=== PATIENT | male | born 1965 | race Caucasian/White ===

== ENCOUNTER → 2016-03-21 | Day surgery (SDC) | payer BC ==
--- NOTE | 2016-03-17 16:52 | HP ---
PREOPERATIVE HISTORY AND PHYSICAL EXAM: DATE OF ADMISSION/SURGERY: 03/21/16 and 04/11/16 [facility] DATE OF OFFICE VISIT/ENCOUNTER: 03/17/16 ATTENDING SURGEON: Emmy Billy MD PROCEDURE: Right wrist carpal tunnel release on 03/21/16, left wrist carpal tunnel release on 04/11/16. CHIEF COMPLAINT: Bilateral wrist/hand numbness and tingling. HISTORY OF PRESENT ILLNESS: This is a 50-year-old male who has had ongoing complaints of numbness and tingling in his bilateral hands for quite some time now. He had a carpal tunnel release several years ago on the left, but had a recurrence of symptoms, and nerve conduction study that was performed last year showed persistent or recurrent carpal tunnel syndrome on the left and carpal tunnel syndrome on the right. The patient has received more conservative treatment including cortisone injections into both carpal tunnels and has tried bracing in the past; however, symptoms persist. The patient is interested in proceeding with more definitive treatment at this time and we will proceed first with a right wrist carpal tunnel release followed by a left wrist carpal tunnel release. PAST MEDICAL HISTORY: 1. Hypertension. 2. Hypercholesterolemia. 3. Asthma. PAST SURGICAL HISTORY: 1. Bilateral knee arthroscopies. 2. Left hand surgery. 3. Left carpal tunnel release. CURRENT MEDICATIONS: 1. Claritin 10 mg daily. 2. Flovent Diskus 100 mcg 2 puffs b.i.d. 3. Fluticasone propionate 50 mcg 2 sprays each nostril p.r.n. 4. Lisinopril 5 mg daily. 5. ProAir HFA 2 puffs q.4 hours p.r.n. 6. Simvastatin 40 mg daily. ALLERGIES: No known drug allergies. FAMILY MEDICAL HISTORY: Significant for heart disease. 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 He denies tobacco and illicit drug use. He does admit to quite regular daily alcohol use , reports generally 3 vodka drinks during the day and wine at night. REVIEW OF SYSTEMS: General: Negative for fevers, chills, or night sweats. No known anesthesia problems. HEENT: Negative for headache, lightheadedness, or syncopal episodes. Integumentary: Negative for abrasions, lesions, or open wounds. Cardiothoracic: Positive for hypertension. Negative for chest pain or palpitations. Pulmonary: Positive for asthma. Positive for shortness of breath with exertion related to asthma. Negative for chronic cough or COPD. GI : Negative for nausea, vomiting, diarrhea, constipation, or GERD. : Negative for nocturia, urinary frequency, urgency, history of UTIs, or kidney problems. Musculoskeletal: Positive for current complaint. Neurological: Negative for history of seizure, stroke, or epilepsy. Endocrine: Negative for diabetes or thyroid issues. Hematologic: Negative for easy bruising, anemia, excessive bleeding, or history of DVT. Infectious Disease: Negative for history of MRSA, hepatitis C, or HIV. PHYSICAL EXAMINATION GENERAL: A well-developed, well-nourished, 50-year-old male, in no acute distress. VITAL SIGNS: Height 5 feet 8 inches, weight 249 pounds, blood pressure 124/76, pulse rate 60. HEENT: Normocephalic, atraumatic. Pupils are equal, round, and reactive to light and accommodation. Extraocular movements are intact. NECK: Supple. No palpable lymph nodes. Throat is clear. PULMONARY: Lungs are clear to auscultation bilaterally. No wheezes, rales, or rhonchi. CARDIOTHORACIC: Regular rate and rhythm. S1, S2. Mild murmur detected. ABDOMEN: Positive bowel sounds, soft, nontender. NEUROLOGICAL: Alert and oriented x3. Cranial nerves II through XII are intact. Sensation is intact to light touch. MUSCULOSKELETAL: On exam of bilateral wrists/hands, there is no thenar wasting. He has a negative Tinel's sign at the median nerves, bilateral wrists. He has good strength with thumb abduction. He has full range of motion in the fingers and could make a fist. He has mildly positive Phalen's test bilaterally. Sensation is intact to light touch throughout both hands. 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 IMPRESSION: Bilateral carpal tunnel syndrome. PLAN: The patient is scheduled to undergo a right wrist carpal tunnel release with Dr. Billy on 03/21/16 and a left wrist carpal tunnel release on 04/11/16. He will return to the office 10 to 14 days postop for followup and suture removal. A prescription for Ultracet was e-scribed to the patient's pharmacy for postoperative pain management. CARINE WHALEY [id number]/[facility] #: [id number] PABLO
[~2016-03-21] MED LIST: Buffered Lidocaine 1% SYR 3ML* 3 ML/SYR SYRINGE INTRADERM ONE; Buffered Lidocaine 1% SYR 3ML* 3 ML/SYR SYRINGE ONE; Lidocaine 1% INJ* 10 MG/ML 30 ML SDV ONE; Propofol* 10 MG/ML 20 ML BTL IV PUSH ONE; ceFAZolin 2 GM PREMIX (*) 2 GM/50 ML BAG IVPB ONE
[2016-03-21 12:26] VITALS: BP 113/70
--- NOTE | 2016-03-21 20:51 | OP ---
DATE OF OPERATION: 03/21/16 LOCATED WITHIN [facility] DATE OF : 61 SURGEON: Emmy Billy MD. INSIDE BARREL POLISHER: CARINE Jorgensen. ANESTHESIOLOGIST: Troy Olivier MD ANESTHESIA: Local MAC. PRE-OP DIAGNOSIS: Right carpal tunnel syndrome which is recurrent. POST-OP DIAGNOSIS: Right carpal tunnel syndrome which is recurrent. OPERATIVE PROCEDURE: Right carpal tunnel release. INDICATIONS FOR PROCEDURE: Salvador is a 50-year-old man who has a history of carpal tunnel release in the past. He did well with that but recently started having symptoms again. New nerve conduction studies shows carpal tunnel syndrome. He presents for carpal tunnel release. ESTIMATED BLOOD LOSS: Zero. TOURNIQUET TIME: About 8 minutes. DESCRIPTION OF PROCEDURE: The patient was brought to the operating room and was given a sedation anesthetic and a local infiltration of 10 cc of 1% plain lidocaine. The skin of his right hand and forearm was prepped and draped in the usual sterile fashion. The hand and forearm were exsanguinated and the tourniquet elevated to 250 mmHg. A longitudinal incision was made in the previous scar and then extended proximally across the wrist flexion crease with zigzag incisions, dissected sharply through the subcutaneous tissue and scar tissue and the transverse carpal ligament was incised completely releasing the nerve for a few centimeters proximal to the wrist and into the center of the palm of the hand. There was some scarring around the transverse carpal ligament and then some compression evident proximal to that. The nerve was completely released from the surrounding tissue. The wound was irrigated and the skin edges reapproximated with 4-0 nylon suture. The wound was dressed with Xeroform , 4x4, Webril, and an Devin wrap. The patient tolerated the procedure well and was brought to the recovery room in good condition. [id number]/[facility] #: [id number] MTDD
== END | disposition home or self-care (01) ==
LOC: OREAST 08:59
PROVIDERS: ATTEND Orthopaedic Surgery
DX: G56.01 Carpal tunnel syndrome, right upper limb (principal); I10 Essential (primary) hypertension; J45.909 Unspecified asthma, uncomplicated; E78.00 Pure hypercholesterolemia, unspecified
CPT/HCPCS: J0690; J2704

== ENCOUNTER → 2016-04-11 | Day surgery (SDC) | payer BC ==
[~2016-04-11] MED LIST changes: +DiMENhydriNATE IV* 50 MG/ML VIAL IV PUSH PRN; +Famotidine IV* 10 MG/ML 2 ML (20 mg) IV ONE; +Famotidine IV* 10 MG/ML 2 ML (20 mg) ONE; +Ketorolac INJ* 30 MG/ML 1 ML VIAL ONE; +Lidocaine 2% PF * 5 ML VIAL ONE; +Midazolam* 1 MG/ML 5 ML VIAL (5 MG) ONE; +Ondansetron INJ* 2 MG/ML VIAL ONE; +fentaNYL* 50 MCG/ML 2 ML VIAL (100 MCG VIAL) ONE; +oxyCODONE/Acetamin 5/325 MG* TAB PO PRN
[2016-04-11 09:18] VITALS: BP 102/68
--- NOTE | 2016-04-11 22:32 | OP ---
DATE OF OPERATION: 04/11/16 [facility] DATE OF : 61 SURGEON: Emmy Billy MD NIGHT WAREHOUSE MANAGER: CARINE Jorgensen ANESTHESIOLOGIST: Clau Crum MD ANESTHESIA: Local MAC. PRE-OP DIAGNOSIS: Left carpal tunnel syndrome. POST-OP DIAGNOSIS: Left carpal tunnel syndrome. OPERATIVE PROCEDURE: Left carpal tunnel release. ESTIMATED BLOOD LOSS: Zero. TOURNIQUET TIME: About 8 minutes. INDICATION FOR PROCEDURE: Salvador is a 50-year-old male who has a history of carpal tunnel syndrome and a carpal tunnel release on the left, he did very well for several years and has recurrent symptoms recently. He presents for a redo carpal tunnel release on the left. DESCRIPTION OF PROCEDURE: The patient was brought to the operating room, was given a sedation anesthetic, and a local infiltration of 1% plain lidocaine in the palm of his left hand. The skin of his left hand and forearm was prepped and draped in the usual sterile fashion. The hand and forearm were exsanguinated and the tourniquet elevated to 250 mmHg. A longitudinal incision with a Jazzy incision across the wrist creases was made in the previous scar and extended proximally. We dissected sharply down to the transverse carpal ligament, which was incised completely releasing the median nerve proximally and distally. There was some scar tissue surrounding the nerve and this was carefully debrided. The nerve, however, appeared to be in good condition. The wound was irrigated and skin edges were reapproximated with 4-0 nylon suture. The wound was dressed with Xeroform, 4x4, Webril, and an Devin wrap. The patient tolerated the procedure well and was brought to the recovery room in good condition. [id number]/[facility] #: [id number] [facility]
== END | disposition home or self-care (01) ==
LOC: OREAST 07:21
PROVIDERS: ATTEND Orthopaedic Surgery
DX: G56.01 Carpal tunnel syndrome, right upper limb (principal); I10 Essential (primary) hypertension
CPT/HCPCS: J0690; J1885; J2250; J2405; J2704; J3010

== ENCOUNTER 2017-10-21 18:02 | Emergency (ER) | payer BC ==
[2017-10-21 18:44] VITALS: BP 137/83
--- NOTE | 2017-10-21 20:48 | RAD ---
EXAM: CT Abdomen and Pelvis Without Intravenous Contrast CLINICAL HISTORY: 51 years old, male; Pain and signs and symptoms; Nausea; Abdominal pain; Patient HX: Hematuria, bilat flank pain, mid to lower abdominal pain; Additional info: Abdominal pain, kidney stone protocal TECHNIQUE: Axial computed tomography images of the abdomen and pelvis without intravenous contrast. Coronal and sagittal reformatted images were created and reviewed. COMPARISON: No relevant prior studies available. FINDINGS: Lung bases: There is minimal bibasilar atelectatic change or scarring. ABDOMEN: Liver: There is mild hepatomegaly. There are multiple cystic lesions in the liver, the largest measuring 2.4 cm, likely simple cysts. Gallbladder and bile ducts: Unremarkable. No calcified stones. No ductal dilation. Pancreas: There is mild peripancreatic fat stranding in the vicinity of the uncinate process and head of the pancreas, cannot exclude mild focal acute pancreatitis. No ductal dilation. Spleen: There is a calcified splenic granuloma. Adrenals: Unremarkable. No mass. Kidneys and ureters: There is a simple cyst of the right kidney measuring a maximum of 4.5 cm. No obstructing stones. No hydronephrosis. There is a small 3 mm nonobstructing left renal calculus. Stomach and bowel: There is colonic diverticulosis without evidence for acute diverticulitis. No obstruction. PELVIS: Appendix: The appendix is unremarkable and seen best on axial image 123. Bladder: Unremarkable. No stones. Reproductive: Unremarkable as visualized. ABDOMEN and PELVIS: Intraperitoneal space: Fat stranding in the upper abdomen and near the root of the mesentery is also adjacent to the fourth portion of the duodenum, cannot exclude mild duodenitis. No free air. No significant fluid collection. There are small bilateral fat-containing inguinal hernias. Bones/joints: There are degenerative changes of the spine. No acute fracture. No dislocation. Soft tissues: Unremarkable. Vasculature: Unremarkable. No abdominal aortic aneurysm. Lymph nodes: Unremarkable. No enlarged lymph nodes. IMPRESSION: 1. There is mild peripancreatic fat stranding in the vicinity of the uncinate process and head of the pancreas, cannot exclude mild focal acute pancreatitis. 2. Fat stranding in the upper abdomen and near the root of the mesentery is also adjacent to the fourth portion of the duodenum, cannot exclude mild duodenitis. 3. There is colonic diverticulosis without evidence for acute diverticulitis. 4. Small nonobstructing left renal calculus.
--- NOTE | 2017-10-21 20:48 | UC ---
Abdominal Pain Male HPI - HPI Summary HPI Summary: pt c/o generalized abdominal pain that began last night, pt reports that he " was up all night" due to abdominal and low back pain. denies injury, hx of kidney stones, hx of GI disorder, had colonoscopy at age 48 and had 2 polyps removed. reports that he has occasional nausea, no vomiting, no diarrhea, states that he has been passing flatus, had small bowel movement yesterday and today, does not feel as though he has emptied his bowels. Pt denies urinary symptoms of frequency, urgency, dysuria or hematuria. Pt states he is fatigued , and has low back and pelvic pressure that is uncomfortable and that he took 2 laxatives today at 2 pm with no improvement in discomfort and no BM. - History of Current Complaint Chief Complaint: UCGI Stated Complaint: STOMACH ACHE (SINCE YESTERDAY) Time Seen by Provider: 10/21/17 19:17 Hx Obtained From: Patient Onset/Duration: Sudden Onset, Lasting Days, Still Present, Worse Since - onset Timing: Constant Severity Initially: Mild Severity Currently: Moderate Pain Intensity: 5 Location: Diffuse, Suprapubic Radiates: Yes Radiates to: Back Character: Colicy, Cramping, Dull Aggravating Factor(s): Movement Alleviating Factor(s): Nothing Associated Signs And Symptoms: Positive: Back Pain, Constipation, Nausea - Risk Factors Testicular Torsion: Negative Cardiac Risk Factors: Hypertension - Allergies/Home Medications Allergies/Adverse Reactions: Allergies Allergy/AdvReac Type Severity Reaction Status Date / Time No Known Allergies Allergy Verified 10/21/17 18:39 PMH/Surg Hx/FS Hx/Imm Hx Previously Healthy: Yes Cardiovascular History: Hypertension - Surgical History Surgical History: Yes Surgery Procedure, Year, and Place: ARTHROSCOPY LEFT AND RIGHT KNEE. REPAIR OF NERVE DAMAGE LEFT HAND- 20 YEARS AGO+. REPAIR OF INJURY LEFT PINKY FINGER. Carpal tunnel x2 - Family History Known Family History: Positive: Cardiac Disease - Social History Occupation: Employed Full-time Lives: With Family Alcohol Use: Weekly Alcohol Amount: 10 DRINKS PER WEEK Substance Use Type: None Smoking Status (MU): Never Smoked Tobacco Amount Used/How Often: OCCASIONAL CIGAR Have You Smoked in the Last Year: Yes Review of Systems Constitutional: Chills, Fatigue Skin: Negative Eyes: Negative ENT: Negative Respiratory: Negative Cardiovascular: Negative Gastrointestinal: Abdominal Pain, Nausea, Other - constipation Genitourinary: Negative Motor: Negative Neurovascular: Negative Musculoskeletal: Negative Neurological: Negative Psychological: Negative Is Patient Immunocompromised?: No All Other Systems Reviewed And Are Negative: Yes Physical Exam Triage Information Reviewed: Yes Appearance: Ill-Appearing, Pain Distress, Obese Vital Signs: Initial Vital Signs Temp 98.3 F 10/21/17 18:36 Pulse 89 10/21/17 18:36 Resp 16 10/21/17 18:36 BP 137/83 10/21/17 18:36 Pulse Ox 98 10/21/17 18:36 Vital Signs Reviewed: Yes Eye Exam: Normal ENT Exam: Normal Dental Exam: Normal Neck exam: Normal Respiratory: Positive: No respiratory distress Cardiovascular Exam: Normal Abdomen Description: Positive: Other: - suprapubic tenderness Bowel Sounds: Positive: Present Musculoskeletal Exam: Normal Neurological Exam: Normal Psychological Exam: Normal Skin Exam: Normal Diagnostics - Radiology No standard instances Radiology Interpretation Completed By: Radiologist - IMPRESSION: 1. There is mild peripancreatic fat stranding in the vicinity of the uncinate process and head of the pancreas, cannot exclude mild focal acute pancreatitis. 2. Fat stranding in the upper abdomen and near the root of the mesentery is also adjacent to the fourth portion of the duodenum, cannot exclude mild duodenitis. 3. There is colonic diverticulosis without evidence for acute diverticulitis. 4. No visible renal, ureteral or bladder calculi. Abd Pain Male Course/Dx - Course Course Of Treatment: I discussed the CT report and recommend that the pt go directly to the closest ER. Pt verbalized understanding and agreed to plan of care. - Differential Dx/Clinical Impression Differential Diagnosis/HQI/PQRI: Constipation, Pancreatitis Provider Diagnoses: pancreatitis. constipation - Physician Notification/Consults Discussed Patient Care With: marianela bacon - accepted Time Discussed With Above Provider: 21:02 Instructed by Provider To: Other - recommended to closest ER Discharge - Sign-Out/Discharge Documenting (check all that apply): Patient Departure - Discharge Plan Condition: Stable Disposition: HOME-RECOMMEND TO ED Patient Education Materials: Pancreatitis (ED), Constipation (ED) Referrals: Epi Combs MD [Primary Care Provider] - As Soon As Possible Additional Instructions: It is recommended that you go directly to the closest emergency room for further evaluation and testing. Per institutional requirements, I have reviewed the chart, however, I was not consulted specifically or made aware of this patient by the above midlevel provider. I did not personally evaluate, interact with , or disposition this patient. - Billing Disposition and Condition Condition: STABLE Disposition: Home-Recommend to ED
== END 2017-10-21 21:14 | disposition home health service (06) ==
LOC: UCCORT 18:02
DX: K85.90 Acute pancreatitis without necrosis or infection, unspecified (principal); K59.00 Constipation, unspecified; I10 Essential (primary) hypertension; F17.290 Nicotine dependence, other tobacco product, uncomplicated
CPT/HCPCS: 74176; 81003; 99212; G0463

== ENCOUNTER → 2019-02-09 05:54 | Day surgery (SDC) | payer BC ==
[~2019-02-09 05:54] MED LIST changes: -Buffered Lidocaine 1% SYR 3ML* 3 ML/SYR SYRINGE INTRADERM ONE; -Buffered Lidocaine 1% SYR 3ML* 3 ML/SYR SYRINGE ONE; +Buffered Lidocaine 1% SYRIN* 1 ML/SYRINGE INTRADERM ONE; -DiMENhydriNATE IV* 50 MG/ML VIAL IV PUSH PRN; -Famotidine IV* 10 MG/ML 2 ML (20 mg) IV ONE; -Famotidine IV* 10 MG/ML 2 ML (20 mg) ONE; -Ketorolac INJ* 30 MG/ML 1 ML VIAL ONE; +Lactated Ringers 1000 ML Bag* 1,000 ML IV SCH; -Lidocaine 1% INJ* 10 MG/ML 30 ML SDV ONE; -Lidocaine 2% PF * 5 ML VIAL ONE; -Midazolam* 1 MG/ML 5 ML VIAL (5 MG) ONE; -Ondansetron INJ* 2 MG/ML VIAL ONE; -Propofol* 10 MG/ML 20 ML BTL IV PUSH ONE; +Tranexamic Acid 1,000 MG in NS 0.9% 50 ML IV ONE; -ceFAZolin 2 GM PREMIX (*) 2 GM/50 ML BAG IVPB ONE; +ceFAZolin 2 GM PREMIX in ORs 2 GM/50 ML BAG ONE; -fentaNYL* 50 MCG/ML 2 ML VIAL (100 MCG VIAL) ONE; -oxyCODONE/Acetamin 5/325 MG* TAB PO PRN
[2019-02-09 06:42] VITALS: BP 124/88
== END | disposition home or self-care (01) ==
LOC: OR 05:54
PROVIDERS: ATTEND Orthopaedic Surgery
DX: M17.12 Unilateral primary osteoarthritis, left knee (principal); Z53.9 Procedure and treatment not carried out, unspecified reason
CPT/HCPCS: J0690

== ENCOUNTER 2019-02-14 08:38 | Inpatient (IN) | payer BC ==
[~2019-02-14 08:38] MED LIST changes: -Tranexamic Acid 1,000 MG in NS 0.9% 50 ML IV ONE; +Tranexamic Acid 1,000 MG in NS 0.9% 50 ML* (outpatient use) IV SCH; -ceFAZolin 2 GM PREMIX in ORs 2 GM/50 ML BAG ONE
[2019-02-14] MEDS ORDERED: ceFAZolin 2 GM PREMIX in ORs 2 GM/50 ML BAG ONE (09:10)
--- OUTSIDE RECORDS SUMMARY | 2019-02-14 09:19 | XMS REPORT | Continuity of Care Document ---
:1965 External Reference #:[id number] Author Name Epi Combs MD (transmitted by agent of provider Sandy Valles) Address [address] [place] [address] Care Team Providers Name Role Phone Epi Combs MD - Family Care Team Information Pharmacy Order Entry Technician [phone] Medicine Problems Active Problems Provider Date Localized, primary osteoarthritis Rito Valentin MD Onset: 02/25/2018 Hyperlipidemia Onset: 02/09/2015 Asthma without status asthmaticus Onset: 02/09/2015 Rosacea Onset: 02/09/2015 Essential hypertension Onset: 02/09/2015 Social History Type Date Description Comments Sex Unknown ETOH Use Drinks Alcoholic Beverages Occasionally Tobacco Use Reviewed: 05/20/16 Patient has never smoked Recreational Drug Use Denies Drug Use Smoking Status Reviewed: 01/25/19 Patient has never smoked Allergies, Adverse Reactions, Alerts Active Allergies Reaction Severity Comments Date Amoxicillin 06/10/2017 Inactive Allergies NKDA 02/28/2015 Medications Active Medications SIG Qnty Indications Ordering Date Provider Azithromycin 2 now and 1 daily 6tabs J06.9 Epi 01/25/2019 250mg x 4 days MD Lauryn Tablets CBD Oil cbd oil 1 or 2 90units Epi 11/26/2018 drops topically MD Lauryn daily for joint pain Tadalafil one every 3 days 14tabs N52.9 Epi 11/26/2018 20mg Tablets as needed MD Lauryn Metronidazole use twice a day 45units L71.9 Epi 05/20/2016 0.75% MD Lauryn Cream Lisinopril-Hydrochlor 1 by mouth every 90tabs I10 Epi 01/21/2016 othiazide day MD Lauryn 20-25mg Tablets Claritin 1 by mouth every 90caps Cassoday 10mg Capsules day MD Lauryn Fluticasone 2 sprays each Unknown Propionate nostril daily as 50mcg/Act needed Suspension Proair HFA 2 puffs by mouth Unknown 108(90Base) every 4 hours as mcg/Act Aerosol needed Flovent Diskus 2 puffs inhaled 84units Epi twice a day MD Lauryn 100mcg/Blist Aerosol Simvastatin 1 by mouth every 90tabs Cassoday 40mg night at bedtime MD Lauryn Tablets Meloxicam Take 1 Tablet By Unknown 7.5mg Tablets Mouth Once Daily In The Morning Medications Administered in Office Medication SIG Qnty Indications Ordering Provider Date Synvisc Or Synvisc-One Rito Valentin MD 05/25/2018 Injection 1 MG Injection Triamcinolone (Kenalog) Rito Valentin MD 02/25/2018 Injection Triamcinolone (Kenalog) Rito Valentin MD 11/20/2017 Injection Depomedrol 40MG Emmy Billy M.D. 02/28/2015 Injection Immunizations CPT Code Status Date Vaccine Lot # [id number] Given 05/21/2017 Tdap - Tetanus/Diptheria/Acellular Pertussis Vital Signs Date Vital Result Comment 01/25/2019 8:27am Height 67 inches 5'7" Weight 235.00 lb Heart Rate 73 /min BP Systolic 136 mmHg BP Diastolic 78 mmHg Respiratory Rate 18 /min Pain Level 4 O2 % BldC Oximetry 98 % room air BMI (Body Mass Index) 36.8 kg/m2 01/20/2019 8:54am Height 67 inches 5'7" Weight 232.00 lb Heart Rate 96 /min BP Systolic 132 mmHg BP Diastolic 82 mmHg Body Temperature 96.7 F Pain Level 2 BMI (Body Mass Index) 36.3 kg/m2 Results Description No Information Available Procedures Date Code Description Status 05/18/2014 10175536 Colonoscopy Completed Medical Devices Description No Information Available Encounters Type Date Location Provider Dx Diagnosis Office Visit 11/26/2018 [facility] Epi I10 Essential (primary) 8:45a MD Lauryn hypertension E78.5 Hyperlipidemia, unspecified M25.562 Pain in left knee N52.9 Male erectile dysfunction, unspecified Office Visit 08/27/2018 [facility] Valentin, M17.12 Unilateral primary 8:00a Orthopedics at osteoarthritis, left [place] knee Assessments Date Code Description Provider 01/25/2019 Z01.818 Encounter for other preprocedural Epi Combs MD examination 01/25/2019 M25.562 Pain in left knee Epi Combs MD 01/25/2019 M17.12 Unilateral primary osteoarthritis, left Epi Combs MD knee 01/25/2019 I10 Essential (primary) hypertension Epi Combs MD 01/25/2019 Z00.01 Encounter for general adult medical Epi Combs MD examination with abnormal findings 01/25/2019 J06.9 Acute upper respiratory infection, Epi Combs MD unspecified 01/20/2019 M17.12 Unilateral primary osteoarthritis, left CARINE Alfaro-C knee 11/26/2018 I10 Essential (primary) hypertension Epi Combs MD 11/26/2018 E78.5 Hyperlipidemia, unspecified Epi Combs MD 11/26/2018 M25.562 Pain in left knee Epi Combs MD 11/26/2018 N52.9 Male erectile dysfunction, unspecified Epi Combs MD 08/27/2018 M17.12 Unilateral primary osteoarthritis, left Rito Valentin MD knee Plan of Treatment Future Appointment(s):02/22/2019 9:15 am - Rito Valentin MD at [facility] at [place]/31/2019 8:15 am - Epi Combs MD at [facility]02/09/2019 7:30 am - Rito Valentin MD at [facility] at [place]/25/2019 - Epi Combs MDZ01.818 Encounter for other preprocedural examinationNew Labs:CBC Auto Diff, Ordered: 01/25/19Partial Thrombo Time PTT, Ordered: 01/25/19Inr/Protime, Ordered: 01/25/19New Xrays: Chest PA & Lat 2 VWS, Ordered: 01/25/19M25.562 Pain in left kneeM17.12 Unilateral primary osteoarthritis, left kneeI10 Essential (primary) hypertensionNew Labs:Comp Metabolic Panel, Ordered: 01/25/19Lipid Profile (Trig/ Chol/HDL), Ordered: 01/25/19Z00.01 Encounter for general adult medical examination with abnormal usxtiuuaB84.9 Acute upper respiratory infection, unspecifiedNew Medication:Azithromycin 250 mg - 2 now and 1 daily x 4 days Functional Status Description No Information Available Mental Status Description No Information Available Referrals Description No Information Available
--- OUTSIDE RECORDS SUMMARY | 2019-02-14 09:19 | XMS REPORT | Continuity of Care Document ---
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 Medicine Problems Active Problems Provider Date Localized, [...] Medications SIG Qnty Indications Ordering Date Provider CBD Oil cbd oil 1 or 2 [...] Tablets Claritin 1 by mouth every 90caps Epi 10mg Capsules day MD Lauryn Fluticasone 2 sprays each Unknown Propionate nostril daily as 50mcg/Act needed Suspension Proair HFA 2 puffs by mouth Unknown 108(90Base) every 4 hours as mcg/Act Aerosol needed Flovent Diskus 2 puffs inhaled 84units Epi twice a day MD Lauryn 100mcg/Blist Aerosol Simvastatin 1 by mouth every 90tabs Epi 40mg night at bedtime MD Lauryn Tablets [...] CPT Code Status Date Vaccine Lot # [id number] Given 05/21/2017 Tdap - Tetanus/Diptheria/Acellular Pertussis Vital [...] Available Procedures Date Code Description Status 05/18/2014 58984579 Colonoscopy Completed Medical Devices Description No Information Available Encounters Type Date Location Provider Dx Diagnosis Office Visit 11/26/2018 [facility] Epi I10 Essential (primary) 8:45a MD Lauryn hypertension E78.5 Hyperlipidemia, unspecified M25.562 Pain in left knee N52.9 Male erectile dysfunction, unspecified [place]17.12 Unilateral primary 8:00a Orthopedics at MD osteoarthritis, left [place] knee Assessments Date Code Description Provider 01/25/2019 Z01.818 Encounter for other preprocedural Epi Combs MD examination 01/25/2019 M25.562 Pain in left knee Epi Combs MD 01/25/2019 M17.12 Unilateral primary osteoarthritis, left Epi Combs MD knee 01/25/2019 I10 Essential (primary) hypertension Epi Combs MD 01/20/2019 M17.12 Unilateral primary osteoarthritis, left Carrie Rafal , PA-C knee 11/26/2018 I10 Essential (primary) hypertension Epi Combs MD 11/26/2018 E78.5 Hyperlipidemia, unspecified Epi Combs MD 11/26/2018 M25.562 Pain in left knee Epi Combs MD 11/26/2018 N52.9 Male erectile dysfunction, unspecified Epi Combs MD 08/27/2018 M17.12 Unilateral primary osteoarthritis, left Rito Valentin MD knee Plan of Treatment Future Appointment(s):02/22/2019 9:15 am - Rito Valentin MD at [facility] at Rosreq3005/31/2019 8:15 am - Epi Combs MD at [facility]/09/2019 7:30 am - Rito Valentin MD at [facility] at Wejkpg8601/25/2019 - Epi Combs MDZ01.818 Encounter for other preprocedural examinationNew Labs:CBC Auto Diff, Ordered: 01/25/19Partial Thrombo Time PTT, Ordered: 01/25/19Inr/Protime, Ordered: 01/25/19New Xrays: Chest PA & Lat 2 VWS, Ordered: 01/25/19M25.562 Pain in left kneeM17.12 Unilateral primary osteoarthritis, left kneeI10 Essential (primary) hypertensionNew Labs:Comp Metabolic Panel, Ordered: 01/25/19Lipid Profile (Trig/ Chol/HDL), Ordered: 01/25/19 Functional Status Description No Information Available Mental Status Description No Information Available Referrals Description No Information Available
--- OUTSIDE RECORDS SUMMARY | 2019-02-14 09:19 | XMS REPORT | Continuity of Care Document ---
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 [phone] Medicine Problems Active Problems Provider Date Localized, primary osteoarthritis Rito Valentin MD Onset: 02/25/2018 Hyperlipidemia Onset: 02/09/2015 Asthma without status asthmaticus Onset: 02/09/2015 Rosacea Onset: 02/09/2015 Essential hypertension Onset: 02/09/2015 Social History Type Date Description Comments Sex Unknown ETOH Use Drinks Alcoholic Beverages Occasionally Tobacco Use Reviewed: 05/20/16 Patient has never smoked Recreational Drug Use Denies Drug Use Smoking Status Reviewed: 01/20/19 Patient has never smoked Allergies, Adverse Reactions, [...] CPT Code Status Date Vaccine Lot # [id number] Given 05/21/2017 Tdap - Tetanus/Diptheria/Acellular Pertussis Vital Signs Date Vital Result Comment 01/20/2019 8:54am Height 67 inches 5'7" Weight 232.00 lb Heart Rate 96 /min BP Systolic 132 mmHg BP Diastolic 82 mmHg Body Temperature 96.7 F Pain Level 2 BMI (Body Mass Index) 36.3 kg/m2 11/26/2018 8:53am Weight 230.00 lb BP Systolic 132 mmHg BP Diastolic 74 mmHg Results Description No Information Available Procedures Date Code Description Status 05/18/2014 92524133 Colonoscopy Completed Medical Devices Description No Information Available Encounters Type Date Location Provider Dx Diagnosis Office Visit 11/26/2018 [facility] Pei I10 Essential (primary) 8:45a MD Lauryn hypertension E78.5 Hyperlipidemia, unspecified M25.562 Pain in left knee N52.9 Male erectile dysfunction, unspecified Office Visit 08/27/2018 [place] Valentin, M17.12 Unilateral primary 8:00a Orthopedics at osteoarthritis, left [place] knee Assessments Date Code Description Provider 11/26/2018 I10 Essential (primary) hypertension Epi Combs MD 11/26/2018 E78.5 Hyperlipidemia, unspecified Epi Combs MD 11/26/2018 M25.562 Pain in left knee Epi Combs MD 11/26/2018 N52.9 Male erectile dysfunction, unspecified Epi Combs MD 08/27/2018 M17.12 Unilateral primary osteoarthritis, left Rito Valentin MD knee Plan of Treatment Future Appointment(s):02/22/2019 9:15 am - Rito Valentin MD at [facility] at Twvpfa1005/31/2019 8:15 am - Epi Combs MD at [facility]02/09/2019 7:30 am - Rito Valentin MD at [facility] at Vdwffv2401/25/2019 8:15 am - Epi Combs MD at [facility] Functional Status Description No Information Available Mental Status Description No Information Available Referrals Description No Information Available
--- OUTSIDE RECORDS SUMMARY | 2019-02-14 09:19 | XMS REPORT | Continuity of Care Document ---
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 Medicine Problems Active Problems Provider Date Localized, [...] CPT Code Status Date Vaccine Lot # [id number] Given 05/21/2017 Tdap - Tetanus/Diptheria/Acellular Pertussis Vital [...] Information Available Procedures Date Code Description Status 01/25/2019 60886 EKG Tracing & Interpretation Completed 05/18/2014 26372933 Colonoscopy Completed Medical Devices Description No Information Available Encounters Type Date Location Provider Dx Diagnosis Office Visit 11/26/2018 [facility] Epi I10 Essential (primary) 8:45a MD Lauryn hypertension E78.5 Hyperlipidemia, unspecified M25.562 Pain in left knee N52.9 Male erectile dysfunction, unspecified Office Visit 08/27/2018 [place] Valentin, M17.12 Unilateral primary 8:00a Orthopedics at osteoarthritis, left [place] knee Assessments Date Code Description Provider 01/25/2019 Z01.818 Encounter for other preprocedural Epi Combs MD examination 01/25/2019 M17.12 Unilateral primary osteoarthritis, left Epi Combs MD knee 01/25/2019 I10 Essential (primary) hypertension Epi Combs MD 01/25/2019 J06.9 Acute upper respiratory infection, Epi Combs MD unspecified 01/20/2019 M17.12 Unilateral primary osteoarthritis, left Carrie Lyles PA-C knee 11/26/2018 I10 Essential (primary) hypertension Epi Combs MD 11/26/2018 E78.5 Hyperlipidemia, unspecified Epi Combs MD 11/26/2018 M25.562 Pain in left knee Epi Combs MD 11/26/2018 N52.9 Male erectile dysfunction, unspecified Epi Combs MD 08/27/2018 M17.12 Unilateral primary osteoarthritis, left Rito Valentin MD knee Plan of Treatment Future Appointment(s):02/22/2019 9:15 am - Rito Valentin MD at [facility] at Bvzykd3805/31/2019 8:15 am - Epi Combs MD at [facility]02/09/2019 7:30 am - Rito Valentin MD at [facility] at Qrabdi6001/20/2019 - CARINE Alfaro-CM17.12 Unilateral primary osteoarthritis, left kneeFollow up:Follow up: 10-14 days post op Functional Status Description No Information Available Mental Status Description No Information Available Referrals Description No Information Available
[2019-02-14] MEDS ORDERED: Propofol* 10 MG/ML 20 ML BTL ONE ×4 (09:28→14:21)
[2019-02-14] MEDS ORDERED: Lidocaine 2% PF * 5 ML VIAL ONE ×3 (09:28→12:14)
[2019-02-14] MEDS ORDERED: Midazolam* 1 MG/ML 2 ML VIAL (2 MG) ONE ×4 (09:28→13:30)
[2019-02-14] MEDS ORDERED: KETAMINE HCL* 50 MG/ML 10 ML VIAL ONE (09:31)
[2019-02-14] MEDS ORDERED: EPHEDrine (Pressors)* 50 MG/ML VIAL ONE (09:48)
[2019-02-14] MEDS ORDERED: Remifentanil* 2 MG VIAL ONE (09:56)
[2019-02-14] MEDS ORDERED: Dexmedetomidine* 200 MCG/2 ML 2 ML VIAL ONE (10:18)
[2019-02-14] MEDS ORDERED: ROPIVACAINE 5 MG/ML 30 ML BTL (0.5%) ONE (10:18)
[2019-02-14] MEDS ORDERED: Bupivacaine 0.5% SDV PF* 30ML VIAL ONE (12:14)
[2019-02-14] MEDS ORDERED: Phenylephrine 10 MG/ML VIAL* 1 ML VIAL ONE (12:42)
[2019-02-14] MEDS ORDERED: Bupivacaine 0.25% EPI 200,000* 30 ML SDV ONE (13:01)
[2019-02-14] MEDS ORDERED: HYDROmorphone INJ1* 1 MG/ML SYRINGE IV PRN (13:34)
[2019-02-14] MEDS ORDERED: Acetaminophen IV 1GM/100ML * 10 MG/ML VIAL IVPB ONE (13:34)
[2019-02-14] MEDS ORDERED: oxyCODONE TAB* 5 MG TAB PO PRN (13:34)
[2019-02-14] MEDS ORDERED: Ondansetron INJ* 2 MG/ML VIAL IV PRN ×2 (13:34→14:43)
[2019-02-14] MEDS ORDERED: Ketorolac INJ* 30 MG/ML 1 ML VIAL IV PRN (13:34)
[2019-02-14] MEDS ORDERED: Naloxone* 0.4 MG/ML 1 ML VIAL IV PRN (13:34)
[2019-02-14] MEDS ORDERED: Dexamethasone IV* 4 MG/ML 1 ML (4 MG) ONE (13:36)
[2019-02-14] MEDS ORDERED: Ondansetron ODT TAB* 4 MG PO PRN (14:43)
[2019-02-14] MEDS ORDERED: diPHENhydraMINE IV* 50 MG/ML 1 ml VIAL (BENADRYL) IV PRN (14:43)
[2019-02-14] MEDS ORDERED: Magnesium Hydroxide LIQ* 30 ML UDC PO PRN (14:43)
[2019-02-14] MEDS ORDERED: diPHENhydraMINE PO* 25 MG PO PRN (14:43)
[2019-02-14] MEDS ORDERED: Albuterol HFA INHALER* 8 gm MDI INH PRN (14:50)
[2019-02-14] MEDS ORDERED: Acetaminophen IV 1GM/100ML * 100 ML ONE (15:01)
[2019-02-14] MEDS ORDERED: Ketorolac INJ* 30 MG/ML 1 ML VIAL ONE (16:01)
[2019-02-14] MEDS ORDERED: Warfarin TAB(*) 10 MG PO ONE (17:00)
[2019-02-14] MEDS: D5W 1/2 NS 1000 ML BAG* 1,000 ML IV SCH (17:42)
[2019-02-14] MEDS ORDERED: Fluticasone NASAL SPRAY 50MCG* 16 gm SPRAY BTL INTRANASAL SCH (18:00)
[2019-02-14] MEDS ORDERED: Simvastatin TAB(NF) 20 MG TAB PO SCH (18:00)
[2019-02-14] MEDS ORDERED: Mometasone 220 MCG MDI INH SCH (18:00)
--- NOTE | 2019-02-14 18:18 | OP ---
DATE OF OPERATION: 02/14/19 - ROOM #347 DATE OF : 61 SURGEON: Kanu Carmona MD FEATHER CURLING MACHINE OPERATOR: Yohana Portillo RPA ANESTHESIA: Spinal and sedation. PRE-OP DIAGNOSIS: Osteoarthritis, left knee. POST-OP DIAGNOSIS: Osteoarthritis, left knee. OPERATIVE PROCEDURE: Left total knee arthroplasty. ESTIMATED BLOOD LOSS: Less than 50 cc. COMPLICATIONS: None. HARDWARE: Tyrell trabecular metal Persona, #8 femur, G tibia, 10 mm polyethylene spacer, 35 mm patella. INDICATIONS: Mr. Barragan is a 53-year-old male who had previously worked with Dr. Rito Valentin. He had been through conservative treatment and had been indicated initially for a medial compartment arthroplasty. Unfortunately with some of the wear he has within the knee, there was concern that he would need a revision shortly thereafter. Therefore, I met him last Thursday when he was here in the preanesthesia area when his medial compartment arthroplasty was cancelled and I discussed with him quickly about a total knee arthroplasty. Today, I once again talked to him about knee replacement surgery, specifically risks of surgery such as infection, scar formation, stiffness, DVT, pulmonary embolism, hardware failure, and continued pain were discussed. I also warned him that surgery does not fix the problems, specifically surgery gets the part into the knee and then it is a physical therapy and rehab afterwards that get everything working. He had still wished to proceed. DESCRIPTION OF PROCEDURE: The patient had a block placed in the holding area and was brought back to the OR. Spinal anesthesia was introduced. A tourniquet was placed over the proximal left thigh and was used during the case. Total tourniquet time would be 60 minutes. Mulligan catheter was also placed. Left knee was prepped and then draped. Esmarch was used to exsanguinate the leg and the tourniquet was raised. Midline incision was made beginning just medial to the tibial tubercle and carried 2 fingerbreadths above the superior pole of the patella. Incision was carried down through the skin and subcutaneous fat. Small bleeders encountered were ligated using electrocautery. Extensor mechanism was exposed and a sharp parapatellar arthrotomy was made. Gush of clear yellowish joint fluid was encountered. It could be seen how he had very specific spurs and changes within the knee. Soft tissues were sharply elevated from the medial side of the tibia and the fat pad was sharpy excised. Patella measured 25 to 26 mm in thickness and a nice 10 mm cut was taken. Patella was then easily subluxed laterally and the knee was flexed up. Nice exposure of the distal femur was obtained. Step drill was used to open the femoral canal and intramedullary guide was placed. Guide was adjusted until it appeared parallel with the epicondyles and posterior condyles and then was pinned into place. Distal femoral cutting guide was then pinned into place and the intramedullary guide was removed. Distal femoral cut was taken and it appeared a nice even cut was obtained. The guide had been set at 2 degrees and to resect 2 mm. Femur was sized and he was just at an 8.5, initially a 9 was selected. Holes were drilled and was used to make sure I did not notch anteriorly and I did not. Anterior and posterior femoral cuts followed by the chamfer cuts were made. Nice smooth cut on the top side was obtained. Attention was turned to the tibia. Step drill was used to open tibial canal and intramedullary guide was placed. Outrigger was assembled and adjusted until it appeared it would take 2 mm from the worn lateral side. He had though quite sclerotic bone. Proximal tibial cutting guide was then pinned into place, and after making sure rotation was also essentially perfect, tibial cut was taken and it could be seen that the bone was quite sclerotic. A 10 mm spacer was then placed and it could be seen he was a little bit tight in flexion and was a little tight in extension on the medial side. Decision was made to downsize the femur and this did seem to help some. With downsizing the femur, I needed to recut the chamfers as well as the PEG holes. Coming back, however, he was still just a little bit tight in both flexion and extension, and the tibia was then recut for an additional 2 mm. Trialing now with an 8 and a G with a 10 mm poly, he came out nicely into full extension and flexed much better than he did preoperatively. He was also stable throughout and patellar tracking was also perfect throughout even without the trial of prosthesis. Patella was sized and 35 seemed to fit well. Hole was drilled. Similarly, the femur was then finished using the notch cut finishing guide and stud holes were drilled. Instrumentation was called for and the tibia followed by femur and patella were all impacted into place. 10 cc of 0.25% Marcaine with epinephrine was injected behind the medial femoral condyle, then additional 10 beyond the lateral femoral condyle, and finally 10 into the lateral gutter. The knee was copiously pulse lavaged. Polyethylene was then snapped into place and the knee was again pulse lavaged. Parapatellar arthrotomy was repaired using interrupted #1 Vicryl sutures and tourniquet was let down during the repair. No significant bleeding was encountered. Once the arthrotomy was closed, knee flexion and extension was still very good as well as patellar tracking and the knee was again pulse lavaged. Subcutaneous tissues were reapproximated with 2-0 Vicryl and skin was closed using khanh. Sterile dressing and Cryo/Cuff were applied in the OR. The patient was then awakened, stable on transfer to the recovery room. [id number]/CPS #: [id number] PABLO
[2019-02-14] MEDS: oxyCODONE TAB* 5 MG TAB PO PRN ×2 (19:33→23:41)
[2019-02-14] MEDS: Magnesium Hydroxide LIQ* 30 ML UDC PO SCH (20:31)
[2019-02-14] MEDS: Docusate CAP* 100 MG PO SCH (20:32)
[2019-02-14] MEDS: traMADol TAB* 50 MG PO PRN (20:32)
[2019-02-14] MEDS: Atorvastatin* 20 MG TAB PO SCH (20:32)
[2019-02-14] MEDS: Cyclobenzaprine TAB* 10 MG PO PRN (20:33)
[2019-02-14] MEDS: CBD OIL PO SCH (20:35)
[2019-02-14] MEDS: ceFAZolin 1 GM ADVAN(*) 1 GM in NS 0.9% 50 ML* 50 ML IVPB SCH (20:36)
[2019-02-14] MEDS: Ketorolac INJ* 30 MG/ML 1 ML VIAL IV PRN (21:51)
--- NOTE | 2019-02-14 23:28 | CONS ---
HOSPITAL MEDICINE CONSULTATION REPORT: DATE OF CONSULT: 02/14/19 ATTENDING PHYSICIAN: Dr. Carmona. CONSULTING PHYSICIAN: Dr. Elise Diaz (dictated by Raquel Vazquez NP). REASON FOR CONSULT: Hypertension. HISTORY OF PRESENT ILLNESS: Mr. Barragan is a 53-year-old male with a past medical history significant for asthma, osteoarthritis, anemia, history of alcohol abuse, hypertension, hyperlipidemia, and rosacea, who presented to [facility] for an elective left total knee replacement with Dr. Carmona. Please see dictated H and P from CARINE Alfaro for complete details. In brief, the patient has ongoing pain, failed conservative measures. Therefore, opted to have an elective left total knee arthroplasty with Dr. Carmona. In the immediate postoperative period, the patient has no complaints. Hospital Medicine was asked to see the patient in consultation to help co-manage his chronic medical conditions. PAST MEDICAL HISTORY: Significant for: 1. Asthma. 2. Osteoarthritis. 3. Anemia. 4. Alcohol abuse. 5. Hypertension. 6. Hyperlipidemia. 7. Rosacea. PAST SURGICAL HISTORY: 1. Carpal tunnel release x2. 2. Knee arthroscopy bilaterally. 3. Left hand laceration repair. HOME MEDICATIONS: Include: 1. Metronidazole 0.75 topically twice daily. 2. Lisinopril/hydrochlorothiazide 20/25 one tablet p.o. daily. 3. Lipitor 20 mg p.o. daily. 4. Fluticasone 50 mcg 3 sprays each nares daily. 5. Flovent Diskus 2 puffs daily. 6. Albuterol. ALLERGIES: To AMOXICILLIN. FAMILY HISTORY: Positive for heart disease, hypertension, cancer, and CVA. SOCIAL HISTORY: The patient does report smoking occasional cigar. He does report daily 4 vodka and orange juice daily plus 2 to 4 ounce glasses of wine daily. Denies any illicit drug use. He does report that he used to smoke marijuana but has not smoked marijuana in the long period of time. He is . He lives with his . Surrogate decision maker in the event he is unable to make his own decisions is his . He is full code. REVIEW OF SYSTEMS: The patient denies any fever, chills, unintended weight loss , chest pain, or edema. Denies any cough, hemoptysis, or shortness of breath. No nausea, vomiting, diarrhea, or abdominal pain. He denies any gross hematuria , dysuria, focal weakness or sensory loss. Denies any visual complaints, dysphagia, arthralgias, myalgias, rashes, lesions, open sores, psychosis, or anxiety. PHYSICAL EXAM: General: At this time, Mr. Barragan is a 53-year-old male. He is alert and oriented resting on hospital bed. He is in no acute distress. Vital Signs: Blood pressure 119/74, heart rate 81, respirations 17, O2 saturation 97%, temperature was 98.2. HEENT: Head is atraumatic, normocephalic. Eyes: EOMs are intact. Sclerae anicteric and not pale. Oral mucosa appeared to be moist. Neck is supple. Lungs are clear to auscultation bilaterally. No wheezes, rales, or rhonchi. Cardiac: S1, S2. Regular rate and rhythm. No murmurs, rubs, or gallops. Abdomen is soft and nontender. Bowel sounds are present x4. Extremities: He is able to move all 4 extremities. There is no clubbing or cyanosis. He does have dressing that is dry and intact to his left knee. Neurologic: He is awake, alert, oriented x3. Speech is clear. Thought process is intact. There are no gross focal deficits. DIAGNOSTIC STUDIES/LAB DATA: CBC from 01/25/19, WBCs are 6.5, RBCs 5.05, hemoglobin 15.2, hematocrit 45, platelet count is 315. INR was 0.97. Sodium 138, potassium 4.7, chloride 103, carbon dioxide is 29, anion gap of 6, BUN was 17, creatinine 1.10. Glucose is 83, calcium 9.7, AST were 20, ALT were 24, alkaline phosphatase was 65, albumin was 4.3. Urine was within normal limits. ASSESSMENT AND PLAN: Mr. Barragan is a 53-year-old male with a past medical history significant for hypertension, asthma, osteoarthritis, anemia, history of alcohol abuse, who presented to [facility] for an elective left total knee arthroplasty. Our recommendations are as follows. 1. Status post left total knee arthroplasty. PT management per Orthopedics. PT /OT per Orthopedics. Bowel regimen per Orthopedics. Pain management per Orthopedics. DVT prophylaxis per Orthopedics. 2. Hypertension. I would hold his lisinopril and hydrochlorothiazide until discharge and he can resume if his blood pressure is above 120. 3. Asthma. The patient should continue on Flovent as previously prescribed. 4. Hyperlipidemia. He should continue his Lipitor as previously prescribed. 5. Alcohol abuse. The patient does drink alcohol daily. I will place him on the [facility] protocol and monitor him for withdrawal. The patient denies any history of any withdrawal symptoms. 6. FEN. He can have a regular diet. 7. Code status: He is full code. 8. DVT prophylaxis as per Orthopedics. TIME SPENT: Time spent on this consultation was 45 minutes, greater than half that time was spent at the bedside reviewing the events leading thus far to his hospitalization, performing physical exam, and reviewing my plan of care. I have discussed this with my attending, Dr. Elise Diaz; she is in agreement with my plan. We will follow this patient if any further management is needed. Please do not hesitate to contact us for further assistance. Thank you for including us in the care of your patient. RAQUEL VAZQUEZ, RICHARDSON [id number]/CPS #: [id number] PABLO
[2019-02-14] MEDS: Acetaminophen TAB* 325 MG PO SCH (23:40)
[2019-02-15] MEDS: traMADol TAB* 50 MG PO PRN ×2 (02:39→21:08)
[2019-02-15] MEDS: Cyclobenzaprine TAB* 10 MG PO PRN (02:40)
[2019-02-15] MEDS: D5W 1/2 NS 1000 ML BAG* 1,000 ML IV SCH (03:35)
[2019-02-15] MEDS: Ketorolac INJ* 30 MG/ML 1 ML VIAL IV PRN ×3 (05:46→21:07)
[2019-02-15] MEDS: ceFAZolin 1 GM ADVAN(*) 1 GM in NS 0.9% 50 ML* 50 ML IVPB SCH ×2 (05:51→13:02)
[2019-02-15 06:35] LABS: INR 1.1 (0.82-1.09)
[2019-02-15 06:38] LABS: Hematocrit 37 % (42-52); Hemoglobin 12.8 g/dL (14.0-18.0); Mean Platelet Volume 6.5 fL (7.4-10.4); Platelet Count 244 10^3/uL (150-450)
[2019-02-15 06:47] LABS: BUN/Creatinine Ratio 15.9 (8-20); Calcium 8.6 mg/dL (8.6-10.3); EGFR African American 108.8 (>60); EGFR Non-African American 89.9 (>60); Potassium 4.1 mmol/L (3.5-5.0)
[2019-02-15] MEDS: oxyCODONE TAB* 5 MG TAB PO PRN ×4 (07:04→20:21)
[2019-02-15] MEDS: Vitamin THERAPEUTIC TAB PO SCH (08:46)
[2019-02-15] MEDS: Magnesium Hydroxide LIQ* 30 ML UDC PO SCH ×2 (09:10→21:19)
[2019-02-15] MEDS: Heparin VIAL(*) 5000 UNITS/ML VIAL (FIVE THOUSAND) SUBCUT SCH ×3 (09:10→22:59)
[2019-02-15] MEDS: Docusate CAP* 100 MG PO SCH ×2 (09:10→20:24)
[2019-02-15] MEDS: Acetaminophen TAB* 325 MG PO SCH ×2 (09:10→15:23)
[2019-02-15] MEDS: CBD OIL PO SCH ×2 (12:59→20:22)
--- NOTE | 2019-02-15 15:48 | PN ---
Progress Note - Progress Note Date of Service: 02/15/19 SOAP: Subjective: []Pt seen at bedside. He feels well without CP, SOB, dizziness, nausea. Knee pain is well controlled. Pt and his do not feel comfortable going home today, desire to stay until tomorrow Objective: []Gen: NAD, appears well LLE: Left knee dressing CDI, thigh soft, DF/PF intact, DP2+, sensation intact to light touch distally. Calves supple and nontender without erythema, edema or palpable cords Assessment: []POD 1 sp LTK Plan: []WBAT PT heparin bridge to coumadin, 8 mg today DC home tomorrow Mild hyponatremia, repeat tomorrow Vital Signs Temp 99.6 F 02/15/19 11:55 Pulse 84 02/15/19 11:55 Resp 16 02/15/19 15:22 BP 125/85 02/15/19 11:55 Pulse Ox 97 02/15/19 11:55 Intake & Output 02/14/19 02/15/19 02/15/19 18:59 06:59 18:59 Intake Total 3000 1575 1894 Output Total 650 2150 250 Balance 2350 -575 1644 Weight 241 lb Intake: IV Fluids 2600 980 1839 ABX - CEFAZOLIN 110 D5W 1/2 NS 980 1729 LR 2500 NS 100ML, Cefazolin 2G 100 IVPB 55 55 ABX - CEFAZOLIN 55 55 Oral 400 540 Output: Urine 250 Mulligan 650 2150 Other: # Bowel Movements 0 Laboratory Last Values Hgb 12.8 g/dL (14.0-18.0) L 02/15/19 06:19 Hct 37 % (42-52) L 02/15/19 06:19 Plt Count 244 10^3/uL (150-450) 02/15/19 06:19 MPV 6.5 fL (7.4-10.4) L 02/15/19 06:19 INR (Anticoag Therapy) 1.10 (0.82-1.09) H 02/15/19 06:19 Sodium 134 mmol/L (135-145) L 02/15/19 06:19 Potassium 4.1 mmol/L (3.5-5.0) 02/15/19 06:19 Chloride 101 mmol/L (101-111) 02/15/19 06:19 Carbon Dioxide 28 mmol/L (22-32) 02/15/19 06:19 Anion Gap 5 mmol/L (2-11) 02/15/19 06:19 BUN 14 mg/dL (6-24) 02/15/19 06:19 Creatinine 0.88 mg/dL (0.67-1.17) 02/15/19 06:19 Est GFR ( Amer) 108.8 (>60) 02/15/19 06:19 Est GFR (Non-Af Amer) 89.9 (>60) 02/15/19 06:19 BUN/Creatinine Ratio 15.9 (8-20) 02/15/19 06:19 Glucose 151 mg/dL (70-100) H 02/15/19 06:19 Calcium 8.6 mg/dL (8.6-10.3) 02/15/19 06:19
[2019-02-15] MEDS ORDERED: Warfarin TAB(*) 4 MG PO ONE (17:00)
[2019-02-15] MEDS: Atorvastatin* 20 MG TAB PO SCH (20:22)
[2019-02-15] MEDS ORDERED: Fluticasone NASAL SPRAY 50MCG* 16 gm SPRAY BTL INTRANASAL SCH (21:00)
[2019-02-15] MEDS ORDERED: Mometasone 220 MCG MDI INH SCH (21:00)
[2019-02-15] MEDS: Morphine INJ* 2 MG/ML 1 ML SYRINGE (TWO MG - NEW SYRINGE VERSION) IV PRN (22:07)
[2019-02-16] MEDS: oxyCODONE TAB* 5 MG TAB PO PRN ×3 (00:20→08:15)
[2019-02-16] MEDS: Cyclobenzaprine TAB* 10 MG PO PRN ×2 (00:52→10:18)
[2019-02-16] MEDS: Acetaminophen TAB* 325 MG PO SCH ×2 (00:53→08:07)
[2019-02-16] MEDS: Morphine INJ* 2 MG/ML 1 ML SYRINGE (TWO MG - NEW SYRINGE VERSION) IV PRN ×2 (02:09→06:20)
[2019-02-16] MEDS: Ketorolac INJ* 30 MG/ML 1 ML VIAL IV PRN (03:29)
[2019-02-16 06:05] LABS: Hematocrit 33 % (42-52); Hemoglobin 11.4 g/dL (14.0-18.0); Mean Platelet Volume 6.5 fL (7.4-10.4); Platelet Count 204 10^3/uL (150-450)
[2019-02-16 06:13] LABS: INR 2.51 (0.82-1.09)
[2019-02-16] MEDS: Heparin VIAL(*) 5000 UNITS/ML VIAL (FIVE THOUSAND) SUBCUT SCH (06:20)
[2019-02-16 07:45] VITALS: BP 108/73
[2019-02-16] MEDS: Docusate CAP* 100 MG PO SCH (08:14)
[2019-02-16] MEDS: Magnesium Hydroxide LIQ* 30 ML UDC PO SCH (08:14)
[2019-02-16] MEDS: CBD OIL PO SCH (08:14)
[2019-02-16] MEDS: Vitamin THERAPEUTIC TAB PO SCH (08:14)
--- NOTE | 2019-02-16 08:16 | CONSULT ---
Subjective Date of Service: 02/16/19 Interval History: 53M PMH HTN, HLD, asthma, anemia, daily ETOH use who is s/p elective L TKR POD2. Medicine consulted for co-mgmt VSS overnight, no e/o w/drawal Labs: Stable Hgb This morning, reports going home, asking about pain meds. We discuss early mobilization, and we also discussed expectatory mgmt around his ETOH use. Strong dependency counselor to cut back or cease ETOH use while recovering particuarly on pain meds. He is fairly ambivalent about this advice but says he understands. No other questions, no CP, SOB, GI, complaints. Review of Systems - Measurements Intake and Output: Intake and Output Last 24 Hours 02/14/19 02/15/19 02/16/19 02/17/19 06:59 06:59 06:59 06:59 Intake Total 4575 2944 Output Total 2800 1600 Balance 1775 1344 Weight 241 lb Intake: IV Fluids 3580 1839 ABX - CEFAZOLIN 110 D5W 1/2 NS 980 1729 LR 2500 NS 100ML, Cefazolin 2G 100 IVPB 55 55 ABX - CEFAZOLIN 55 55 Oral 940 1050 Output: Urine 1600 [place] 2800 Other: Estimated Void Large Date of Last Bowel 02/15/2019 Movement # Bowel Movements 1 Estimated Stool Amount Medium # Voids 3 - Review of Systems General Comments: As per HPI Objective Active Medications: Acetaminophen (Tylenol Tab*) 975 mg PO Q8H [facility] Last Admin: 02/16/19 08:07 Dose: 975 mg Albuterol (Ventolin Hfa Inhaler*) 2 puff INH Q6HR PRN PRN Reason: SOB/WHEEZING Atorvastatin Calcium (Lipitor*) 20 mg PO 2100 GUST[facility]O Last Admin: 02/15/19 20:22 Dose: 20 mg Bisacodyl (Dulcolax Supp*) 10 mg MO DAILY PRN PRN Reason: CONSTIPATION Cyclobenzaprine HCl (Flexeril Tab*) 10 mg PO Q6H PRN PRN Reason: SPASMS Last Admin: 02/16/19 00:52 Dose: 10 mg Diphenhydramine HCl (Benadryl Iv*) 25 mg IV Q6H PRN PRN Reason: PRURITIS Diphenhydramine HCl (Benadryl Po*) 25 mg PO Q6H PRN PRN Reason: PRURITIS Docusate Sodium (Colace Cap*) 100 mg PO BID [facility] Last Admin: 02/15/19 20:24 Dose: Not Given Fluticasone Propionate (Flonase Nasal [place] 50mcg*) 1 spray INTRANASAL BEDTIME [facility] Last Admin: 02/15/19 23:01 Dose: 1 spray Heparin Sodium (Porcine) (Heparin Vial(*)) 5,000 units SUBCUT Q8HR [facility] Last Admin: 02/16/19 06:20 Dose: 5,000 units Dextrose/Sodium Chloride (D5w 1/2 Ns 1000 Ml Bag*) 1,000 mls @ 100 mls/hr IV PER RATE [facility] Last Admin: 02/15/19 03:35 Dose: 100 mls/hr Ketorolac Tromethamine (Toradol Inj*) 30 mg IV Q6H PRN PRN Reason: PAIN - MILD Last Admin: 02/16/19 03:29 Dose: 30 mg Lactulose (Lactulose*) 30 ml PO BID PRN PRN Reason: CONSTIPATION Last Admin: 02/15/19 15:23 Dose: 30 ml Magnesium Hydroxide (Milk Of Magnesia Liq*) 30 ml PO BID [facility] Last Admin: 02/15/19 21:19 Dose: Not Given Magnesium Hydroxide (Milk Of Magnesia Liq*) 30 ml PO Q6H PRN PRN Reason: CONSTIPATION Mometasone Furoate (Asmanex 220 Mcg Mdi *) 1 puff INH BEDTIME [facility] Last Admin: 02/15/19 20:21 Dose: 1 puff Morphine Sulfate (Morphine Inj (Syringe))*) 2 mg IV Q4H PRN PRN Reason: Pain - Unrelieved Last Admin: 02/16/19 06:20 Dose: 2 mg Multivitamins (Theragran Tab*) 1 tab PO DAILY [facility] Last Admin: 02/15/19 08:46 Dose: Not Given Pto: Cbd Oil 5 Drop 5 drop PO BID [facility] Last Admin: 02/15/19 20:22 Dose: 5 drop Ondansetron HCl (Zofran Inj*) 4 mg IV Q6H PRN PRN Reason: NAUSEA Ondansetron HCl (Zofran Odt Tab*) 4 mg PO Q6H PRN PRN Reason: NAUSEA Oxycodone HCl (Roxycodone Tab*) 10 mg PO Q4H PRN PRN Reason: Pain - Breakthrough Last Admin: 02/16/19 04:20 Dose: 10 mg Tramadol HCl (Ultram*) 50 mg PO Q6H PRN PRN Reason: PAIN - MODERATE Last Admin: 02/15/19 21:08 Dose: 50 mg Vital Signs - 8 hr 02/16/19 02/16/19 02/16/19 00:20 00:21 00:22 Temperature Pulse Rate Respiratory 20 20 20 Rate Blood Pressure (mmHg) O2 Sat by Pulse Oximetry 02/16/19 02/16/19 02/16/19 00:23 00:52 02:09 Temperature Pulse Rate Respiratory 20 16 16 Rate Blood Pressure (mmHg) O2 Sat by Pulse Oximetry 02/16/19 02/16/19 02/16/19 02:20 03:42 03:43 Temperature Pulse Rate Respiratory 18 18 18 Rate Blood Pressure (mmHg) O2 Sat by Pulse Oximetry 02/16/19 02/16/19 02/16/19 04:00 04:20 06:20 Temperature 97.8 F Pulse Rate 89 Respiratory 16 18 18 Rate Blood Pressure 116/67 (mmHg) O2 Sat by Pulse 94 Oximetry 02/16/19 02/16/19 02/16/19 06:27 07:44 07:55 Temperature 97.6 F Pulse Rate 75 Respiratory 18 16 18 Rate Blood Pressure 108/73 (mmHg) O2 Sat by Pulse 97 Oximetry Oxygen Devices in Use Now: None Appearance: No acute distress Eyes: No Scleral Icterus Neck: NL Appearance and Movements; NL JVP Respiratory: Symmetrical Chest Expansion and Respiratory Effort, Clear to Auscultation Cardiovascular: NL Sounds; No Murmurs; No JVD, RRR Abdominal: NL Sounds; No Tenderness; No Distention, - - Obese Lymphatic: No Cervical Adenopathy Extremities: No Edema Skin: No Rash or Ulcers Neurological: Alert and Oriented x 3 Result Diagrams: 02/16/19 05:44 02/16/19 05:44 Assessment/Plan - Billing 53M PMH HTN, HLD, asthma, anemia, daily ETOH use who is s/p elective L TKR POD2. Medicine consulted for co-mgmt #S/p TKR: Pain and post operative course to be managed by ortho #HTN: Well controlled, resume meds on d/c #HLD: Continue statin #Asthma: No acute issues #ETOH: No e/o withdrawal from labs or clinically, strong dependency counselor to cessate upon return to home. #Anemia: Appears stable VTE PPX: Per ortho Medicine to formally sign off unless other pressing issues, resume home meds and DVT PPX moving foward as per ortho data. Thank you, please don't hesitate to contact us if any questions arise.
--- NOTE | 2019-02-16 09:42 | DS ---
Orthopedic Discharge Summary - Discharge Summary Date of Admission:02/14/19 Date of Discharge: 02/16/19 Date of Surgery: 02/14/19 Attending Orthopedic Provider: Dr Carmona Pre-operative Diagnosis: Left knee osteoarthritis Operative Procedure: left total knee replacement Disposition of Patient: home with nursing services and home PT Condition of Patient: stable History: KASSANDRA HOSKINS is a 53 year old M with years of increasingly severe left knee pain. Patient has failed conservative management and has elected to undergo a left total knee replacement Hospital Course: KASSANDRA was admitted to [facility] on 02/14/19. Patient underwent a left total knee replacement without complication followed by a brief recovery in PACU and transfer to the Short Stay Surgical Unit in stable condition. Our hospitalist service, physical therapy also participated in this patients care. Post-op day 1: patient was alert and in no acute distress. Dressing was clean, dry and intact. Operative extremity dorsiflexion and plantarflexion intact, sensation intact to light touch distally, DP2+. Post- op day two: Pt felt well with well controlled pain, denies CP, SOB, dizziness, nausea. dressing was changed, incision was clean, dry and intact, NVI distally. Patient was deemed to be medically and orthopedically stable for discharge. Physical therapy goals were met. Home Medications Medication Instructions Recorded Confirmed Type Albuterol inh POWDER (NF) [Proair 2 puff INH Q6HR PRN 03/18/16 02/10/19 History Respiclick] Lisinopril TAB* [Prinivil TAB 10 20 mg PO QPM 03/18/16 02/14/19 History MG*] Simvastatin TAB(NF) [Zocor 20 MG 40 mg PO QPM 03/18/16 02/14/19 History (NF)] Cbd Oil 5 drop PO BID 01/28/19 02/14/19 History Fluticasone DISKUS 100 MCG(NF) 2 puff INH QPM 01/28/19 02/14/19 History [Flovent Diskus 100 MCG(NF)] Fluticasone NASAL SPRAY 50MCG* 3 inh INH QPM 01/28/19 02/14/19 History [Flonase NASAL SPRAY 50MCG*] Atorvastatin* [Lipitor 20 MG*] 20 mg PO 2100 02/10/19 02/14/19 History Equate 1 dose PO QPM 02/10/19 02/14/19 History Acetaminophen TAB* [Tylenol TAB*] 975 mg PO Q8H tab 02/16/19 Rx Docusate CAP* [Colace Cap*] 100 mg PO BID PRN #90 cap 02/16/19 Rx Warfarin TAB(*) [Coumadin TAB(*)] 2 mg PO DAILY #90 tab 02/16/19 Rx oxyCODONE TAB* [Roxycodone TAB 5 10 mg PO Q4H PRN #70 tab MDD 10 02/16/19 Rx mg*] Discharge Instructions following Orthopedic Surgery: Activity: * Weight Bearing as tolerated * Continue physical therapy and occupational therapy exercises as shown * Home PT Wound care: * OK to shower on post-op day 3, no bathing, swimming, or submerging wound. * Use gentle soap, pat dry. Cover with gauze, ANT wrap or tape. * Visiting home nurse to do wound checks. Nurse to Remove khanh in 2 weeks Call Orthopedic office for: * Increased drainage * Redness * Increased pain * Fever Go to ER with shortness of breath or chest pain. Diet: * Regular diet * Increase fluids and fiber to prevent constipation. * Continue to use stool softeners, call office if no bowel motion within 48 hours. Medications See Home Medication List in your packet for medications that you should take after discharge. DVT Prophylaxis: Increases bleeding risk Coumadin Dosing: * Please note that you have been given 2 mg tablets. * Visiting home nurse to draw blood work for INR on Thursday and . * You will be provided with dose instructions on Mondays and . * If you do not receive dosing instruction on dosing, please call our office right away. Please denise dosing instructions on your calendar as they are provided to you. * Dosin mg on 02/16 and on 02/17, first INR draw for further dosing instructions will be thursday, then thursday and draws thereafter. Call orthopedic office if you do not receive dosing instructions. Pain Control: Oxycodone 5 mg 1 tab for moderate and 2 tabs for severe pain every 4 hours as needed. Hold for sedation and wean off as soon as pain allows Antibiotics are required prior to any dental work. FOLLOW UP: Follow up with Dr. Jose] Within 4 weeks, call for appointment Please call our office with any questions or concerns ([phone]) [facility]
[2019-02-16] MEDS: traMADol TAB* 50 MG PO PRN (10:17)
[2019-02-16] MEDS ORDERED: Bisacodyl SUPP* 10 MG SUPP PR PRN (14:43)
== END 2019-02-16 11:35 | disposition home health service (06) | DRG 302 ==
LOC: AA 08:38 → SSU 14:43
PROVIDERS: ADMIT Orthopaedic Surgery; ATTEND Orthopaedic Surgery
PROC: 0SRD0JZ Replacement of Left Knee Joint with Synthetic Substitute, Open Approach (ICD-10-PCS; principal; 2019-02-14 10:30)
DX: M17.12 Unilateral primary osteoarthritis, left knee (principal); E87.1 Hypo-osmolality and hyponatremia; J45.909 Unspecified asthma, uncomplicated; I10 Essential (primary) hypertension; E78.5 Hyperlipidemia, unspecified; L71.9 Rosacea, unspecified; F10.10 Alcohol abuse, uncomplicated; D64.9 Anemia, unspecified; Z28.21 Immunization not carried out because of patient refusal; Z88.0 Allergy status to penicillin; Z72.0 Tobacco use; Z79.899 Other long term (current) drug therapy; Z79.51 Long term (current) use of inhaled steroids
CPT/HCPCS: 36415; 80048; 84300; 85014; 85018; 85049; 85610; 94640; A9270-GY; J0690; J1100; J1644; J1885; J2250; J2270; J2704; J2795; J3490

== ENCOUNTER 2021-02-11 07:20 | Observation (INO) ==
[~2021-02-11 07:20] MED LIST changes: +Buffered Lidocaine 1% SYRIN 1 ml INTRADERM ONE; -Buffered Lidocaine 1% SYRIN* 1 ML/SYRINGE INTRADERM ONE; -Lactated Ringers 1000 ML Bag* 1,000 ML IV SCH; +Lactated Ringers 1000 ml BAG 1,000 ML IV SCH; -Tranexamic Acid 1,000 MG in NS 0.9% 50 ML* (outpatient use) IV SCH
[2021-02-11] MEDS ORDERED: ceFAZolin 2 GM PREMIX 2 GM/50 ML BAG ONE (07:52)
[2021-02-11] MEDS ORDERED: Buffered Lidocaine 1% SYRIN 1 ml INTRADERM ONE (07:52)
[2021-02-11] MEDS ORDERED: Bupivacaine 0.5% SDV PF 30ML VIAL ONE ×2 (08:49→10:11)
[2021-02-11] MEDS ORDERED: Lidocaine 1% w EPI 1:100,000 MDV 20 ML VIAL ONE (08:49)
[2021-02-11] MEDS ORDERED: Midazolam 5 mg/5 ml VIAL 1 mg/ml 5 ml VIAL (5 mg) ONE (09:26)
[2021-02-11] MEDS ORDERED: fentaNYL 100 mcg/2 ml 50 MCG/ML VIAL ONE ×2 (09:26→11:25)
[2021-02-11] MEDS ORDERED: Famotidine IV 10 MG/ML 2 ml VIAL (20 mg) ONE (10:07)
[2021-02-11] MEDS ORDERED: Lidocaine 2% PF 5 ML VIAL ONE (10:40)
[2021-02-11] MEDS ORDERED: Propofol 10 MG/ML 20 ML BTL ONE ×3 (10:40→12:57)
[2021-02-11] MEDS ORDERED: EPHEDrine (Pressors) 50 MG/ML VIAL ONE (10:52)
[2021-02-11] MEDS ORDERED: Midazolam 2 mg/2 ml VIAL 1 mg/ml 2 ml VIAL (2 mg) ONE (11:04)
[2021-02-11] MEDS ORDERED: HYDROmorphone 1 MG/1 ML SYRINGE IV PRN (11:20)
[2021-02-11] MEDS ORDERED: fentaNYL 100 mcg/2 ml 50 MCG/ML VIAL IV PRN (11:20)
[2021-02-11] MEDS ORDERED: Naloxone 0.4 mg VIAL 0.4 mg/ml 1 ml VIAL IV PRN (11:20)
[2021-02-11] MEDS ORDERED: Ondansetron 4 mg VIAL 2 MG/ML 2 ml VIAL IV PRN ×2 (11:20→13:58)
[2021-02-11] MEDS ORDERED: DiMENhydriNATE IV 50 mg/ml 1 ml VIAL IV PUSH PRN (11:20)
[2021-02-11] MEDS ORDERED: Dexmedetomidine 200 mcg/2 ml 2 ml VIAL (200 mcg) ONE (11:26)
[2021-02-11] MEDS ORDERED: Acetaminophen IV 1 GM/100ML 100 ML IV ONE (11:50)
[2021-02-11] MEDS ORDERED: Morphine 2 MG/ML SYRINGE IV PRN (13:58)
[2021-02-11] MEDS ORDERED: Ondansetron ODT 4 mg TAB 4 MG TAB PO PRN (13:58)
[2021-02-11] MEDS ORDERED: diPHENhydraMINE IV 50 MG/ML 1 ml VIAL (BENADRYL) IV PRN (13:58)
[2021-02-11] MEDS ORDERED: Magnesium Hydroxide LIQ 30 ML UDC PO PRN (13:58)
[2021-02-11] MEDS ORDERED: diPHENhydraMINE 25 mg TAB PO PRN (13:58)
[2021-02-11] MEDS ORDERED: Lactulose 30 ml UDC PO PRN (13:58)
[2021-02-11] MEDS ORDERED: Levalbuterol HFA INHALER MDI ONE (13:59)
[2021-02-11] MEDS ORDERED: NF: Metronidazole (TOPICAL)(NF) 45 GM TUBE TOPICAL PRN (14:09)
[2021-02-11] MEDS ORDERED: ceFAZolin 1 GM ADVAN 1 GM in NS 0.9% 50 ML 50 ML IVPB SCH (16:00)
[2021-02-11] MEDS: Lactated Ringers 1000 ml BAG 1,000 ML IV SCH (17:09)
[2021-02-11] MEDS ORDERED: Albuterol HFA INHALER 8 gm MDI INH PRN (17:24)
[2021-02-11] MEDS ORDERED: Simvastatin 20 mg TAB (NF) PO SCH (18:00)
[2021-02-11] MEDS ORDERED: Mometasone 220 MCG MDI INH SCH (19:00)
[2021-02-11] MEDS: ceFAZolin 1 GM ADVAN 1 GM in NS 0.9% 50 ML 50 ML IVPB SCH (19:36)
[2021-02-11] MEDS: Magnesium Hydroxide LIQ 30 ML UDC PO SCH (21:21)
[2021-02-12] MEDS: Lactated Ringers 1000 ml BAG 1,000 ML IV SCH (03:16)
[2021-02-12] MEDS: ceFAZolin 1 GM ADVAN 1 GM in NS 0.9% 50 ML 50 ML IVPB SCH ×2 (03:19→10:55)
[2021-02-12 05:59] LABS: Hematocrit 33 % (42-52); Hemoglobin 11.2 g/dL (14.0-18.0); Mean Platelet Volume 6.6 fL (7.4-10.4); Platelet Count 228 10^3/uL (150-450)
[2021-02-12 06:20] LABS: Calcium 8.5 mg/dL (8.6-10.3); Potassium 4.4 mmol/L (3.5-5.0); eGFR CKD-EPI 100.6 (>60)
[2021-02-12] MEDS: Magnesium Hydroxide LIQ 30 ML UDC PO SCH (07:47)
[2021-02-12] MEDS ORDERED: Vitamin THERAPEUTIC TAB PO SCH (09:00)
[2021-02-12 11:10] VITALS: BP 115/74
== END 2021-02-12 13:53 | disposition home or self-care (01) ==
LOC: INTOOBSV 07:20 → AA 07:20 → SSU 17:09
PROVIDERS: ADMIT Orthopaedic Surgery; ATTEND Orthopaedic Surgery